=== PATIENT | female | born 1995 | race Caucasian/White ===

== ENCOUNTER 2021-05-26 14:52 | Emergency (ER) | payer MEDICAID ==
[~2021-05-26] VITALS: Ht 167.6 cm; Wt 93.0 kg
--- NOTE | 2021-05-26 16:40 | NUR ---
PATIENT WAS MSE BY DR MEAD.
--- NOTE | 2021-05-26 17:25 | NUR ---
COVID rapid and PCR swabed and sent to the lab, per provider order.
[2021-05-26 17:40] VITALS: BP 115/77
--- NOTE | 2021-05-26 17:40 | NUR ---
Patient discharged to home in stable condition. Written and verbal after care instructions given by Dr Burciaga. Patient verbalizes understanding of instructions. Stressed follow up or return to ER for worsening s/s.
== END 2021-05-26 17:40 | disposition home or self-care (01) ==
LOC: ER 14:59
DX: U07.1 COVID-19 (principal); J02.9 Acute pharyngitis, unspecified
CPT/HCPCS: 87426; 99283; U0003; A4663